=== PATIENT | male | born 1980 | race Caucasian/White ===

== ENCOUNTER 2020-02-25 13:34 | Emergency (ER) | payer SELFPAY ==
[~2020-02-25] VITALS: Ht 182.9 cm; Wt 78.8 kg
--- NOTE | 2020-02-25 14:30 | NUR ---
belongings put into 2 bags and put into the locker.
--- NOTE | 2020-02-25 14:30 | NUR ---
pt amb to br with steady gait. urine cup given.
--- NOTE | 2020-02-25 14:41 | NUR ---
first contact with pt. +si. pt stated 'i feel like i wanna kill my self. i'm depressed." pt's aox4. resps even and unlabored. sitter monitoring from hallway for safety. room secure.
[2020-02-25 15:18] LABS: BASOPHILS % (AUTO) 1 % (0-1); EOSINOPHILS % (AUTO) 1 % (1-7); LYMPHOCYTES % (AUTO) 19 % (22-44); MEAN CORPUSCULAR HEMOGLOBIN 31.1 pg (27.5-34.5); MEAN PLATELET VOLUME 7.7 fL (7.4-10.4); MONOCYTES % (AUTO) 7 % (2-9); NEUTROPHILS % (AUTO) 71 % (42-75); PLATELET COUNT 286 x10^3/uL (130-400); RED BLOOD COUNT 4.26 x10^6/uL (4.38-5.82); RED CELL DISTRIBUTION WIDTH 12.7 % (9.4-14.8)
[2020-02-25 15:24] LABS: MD NO
[2020-02-25 15:28] LABS: AMPHETAMINE SCREEN, URINE Negative (Negative); BARBITURATE SCREEN, URINE Negative (Negative); BENZODIAZEPINE SCREEN, URINE Positive (Negative); CANNABINOID SCREEN, URINE Positive (Negative); COCAINE SCREEN, URINE Negative (Negative); METHADONE SCREEN, URINE Negative (Negative); OPIATE SCREEN, URINE Negative (Negative)
[2020-02-25 15:30] LABS: ALBUMIN 3.4 g/dL (3.4-5.0); ANION GAP 7 mmol/L (5-15); CALCIUM 8.4 mg/dL (8.5-10.1); CHLORIDE 110 mmol/L (98-107); CREATININE 0.94 mg/dL (0.7-1.3)
[2020-02-25 15:31] LABS: SALICYLATE LEVEL < 1.7 mg/dL (2.8-20.0)
--- NOTE | 2020-02-25 15:50 | NUR ---
psych mobile sales expert at bedside at this time.
--- NOTE | 2020-02-25 16:35 | NUR ---
WATER AND SNACKS PROVIDED AT THIS TIME.
[2020-02-25] MEDS: OLANZAPINE 10 MG TABLET PO SCH (17:00)
--- NOTE | 2020-02-25 17:12 | NUR ---
DIET TRAY ORDERED AT THIS TIME.
[2020-02-25] MEDS ORDERED: OLANZAPINE 10 MG TABLET ONE (17:13)
--- NOTE | 2020-02-25 17:21 | NUR ---
PT MEDICATED PER EMAR. PT TOLERATED WELL.
--- NOTE | 2020-02-25 17:45 | NUR ---
DIET TRAY PROVIDED AT THIS TIME.
--- NOTE | 2020-02-25 18:45 | NUR ---
PACKET FAXED TO [facility]
--- NOTE | 2020-02-25 18:51 | NUR ---
report given to libby thomas.
--- NOTE | 2020-02-25 19:09 | NUR ---
REPORT FROM CHRISTIAN MARK. PT SLEEPING, NADN, RESPIRATIONS EVEN AND UNLABORED, IN VIEW OF THE SITTER.
--- NOTE | 2020-02-25 21:00 | NUR ---
PT REMAINS SLEEPING. ALL NEEDS MED AT THIS TIME.
--- NOTE | 2020-02-26 00:22 | NUR ---
PT ASKED FOR VS TO BE DONE BECAUSE HE FEELS HOT AND THEREFORE LIKE HE IS "GOING THROUGH WITHDRAWS." PT HAS BEEN SLEEPING IN BED, NADN, RESPIRATIONS EVEN AND UNLABORED.
--- NOTE | 2020-02-26 01:05 | NUR ---
HOSPITAL BED REQUESTED.
--- NOTE | 2020-02-26 02:15 | NUR ---
break rn - pt swapped to hospital bed
--- NOTE | 2020-02-26 05:15 | NUR ---
PT HAS BEEN SLEEPING ON HOSPITAL BED, RESPIRATIONS EVEN AND UNLABORED, NADN.
--- NOTE | 2020-02-26 06:46 | NUR ---
PT SHOWERED AND BRUSHED TEETH.
--- NOTE | 2020-02-26 06:59 | NUR ---
BEDSIDE REPORT TO CHRISTIAN RAMSAY. PT TALKING WITH SOBIA NOW. KAITLIN.
--- NOTE | 2020-02-26 07:27 | NUR ---
PATIENT AWAKE AND TALKATIVE ABOUT HIS SITUATION. HE STATES HE HAS BEEN THINKING PEOPLE ARE AFTER HIP HEAVILY THIS PAST FE AND THEN AGAIN RECENTLY, HE GOT RELEASED FROM PSYCH AT HIS HOME IN [facility] AND CAME TO [place] TO BE WITH FRIEND NORM; STATES HE HAS FEW FRIENDS. STATES NORM THEN NEVER SHOWED UP. HE STATES HE'S BEEN PARANOID PEOPLE ARE FOLLOWING HIM AND WONDERS IF ITS THE INCREASED THC. LISTENED. ASKED ABOUT HIS MEDICATIONS AND HE STATES HE TAKES LITHIUM 10MG BID, VIVANCE UNKNOWN DOSE AND ZYPREXA TO HELP BUT HAS BEEN OFF THEM. WILL DISCUSS WITH MD. REASSURED PATIENT, ORDERED BREAKFAST AND FOOD.
--- NOTE | 2020-02-26 07:37 | NUR ---
PATIENT ON HOSPITAL BED
--- NOTE | 2020-02-26 07:56 | NUR ---
PATIENT STATES HIS PHARMACY [facility]
[2020-02-26] MEDS ORDERED: vivance PO (08:11)
[2020-02-26] MEDS ORDERED: OLAN5TAB3 PO (08:11)
[2020-02-26] MEDS ORDERED: METHYLPHENIDATE PO (08:11)
[2020-02-26] MEDS ORDERED: [UNRECOGNIZED DRUG - OTHER] IM (08:11)
--- NOTE | 2020-02-26 08:20 | NUR ---
got patient full breakfast (ate all) and coffee. called [facility] and left med list for Dr. Jimenez to review, patient requesting meds.
[2020-02-26] MEDS ORDERED: OLANZAPINE 10 MG TABLET ONE (08:52)
[2020-02-26] MEDS: OLANZAPINE 10 MG TABLET PO SCH (08:53)
--- NOTE | 2020-02-26 11:35 | NUR ---
PATIENT TALKING TO MENTAL HEALTH, AND GETTING VERY ANXIOUS. WILL DISCUSS ANTI ANXIETY MED WITH
--- NOTE | 2020-02-26 11:50 | NUR ---
WALKED PATIENT TO PHONE AND HE CALLED FRIEND NORM. [facility]. WILL DISCUSS WITH MENTAL HEALTH.
--- NOTE | 2020-02-26 11:51 | NUR ---
ATE ALL OF LUNCH
--- NOTE | 2020-02-26 12:55 | NUR ---
walked patient to phone and he called his girlfriend in [place] and began arguing with her. he was getting loud and after 5 minutes on phone pacing and yelling, asked him to wrap it up. he got angry and shouting at staff. will discuss discharge with Abraham
--- NOTE | 2020-02-26 13:39 | NUR ---
patient discharged to plan to get with angelica and then make his way home to girlfriend/life there. given a bus pass, and rx and directions to [facility]. patient belongings - all - returned.
[2020-02-26 13:40] VITALS: BP 122/78
== END 2020-02-26 13:49 | disposition home or self-care (01) ==
LOC: ED 14:57
DX: F32.9 Major depressive disorder, single episode, unspecified (principal)
CPT/HCPCS: 36415; 80048; 80307; 82040; 85025; 99285